=== PATIENT | female | born 1965 | race Caucasian/White ===

== ENCOUNTER 2023-07-01 10:22 | Emergency (ER) | payer OTHER ==
[2023-07-01 10:27] VITALS: RESP 18; TEMP 98; BMI 26.6
[2023-07-01] MEDS ORDERED: SODIUM CHLORIDE 1,000 ML IV ONE (10:55)
[2023-07-01 11:47] LABS: BASO % 0.6 % (0-2.0); EOS % 2.6 % (0-4.5); HEMATOCRIT 40.1 % (32.4-45.2); HEMOGLOBIN 13.2 GM/dL (10.7-15.3); LYMPH % 36.5 % (8-40); MCH 29.8 pg (25.7-33.7); MEAN CELL VOLUME 90.3 fl (80-96); MEAN PLT VOLUME 10.4 fl (7.5-11.1); MONO % 7.2 % (3.8-10.2); NEUT % 53.1 % (42.8-82.8); PLATELET COUNT 227 10^3/uL (134-434); RBC 4.43 M/mm3 (3.60-5.2); RDW 13.2 % (11.6-15.6); WHITE BLOOD COUNT 5.4 K/mm3 (4.0-10.0)
[2023-07-01 11:49] LABS: EPI CELLS >36 /uL (0-25.1); HYALINE CASTS 1 /uL (0-3.1); PH,URINE 5.5 (5.0-8.0); URINE APPEARANCE TURBID; URINE BACTERIA >9,000 /uL (0-1359); URINE BILIRUBIN NEGATIVE (NEGATIVE); URINE COLOR YELLOW; URINE GLUCOSE (UA) 3+ (NEGATIVE); URINE KETONE TRACE (NEGATIVE); URINE LEUK ESTERASE 2+ (NEGATIVE); URINE NITRITE NEGATIVE (NEGATIVE); URINE PROTEIN 1+ (NEGATIVE); URINE RBC 116 /uL (0-23.9); URINE UROBILINOGEN 0.2 mg/dL (0.2-1.0); URINE WBC 7104 /uL (0-25.8)
[2023-07-01 11:52] LABS: VENOUS BASE EXCESS -0.5 mmol/L (-2-2); VENOUS O2 SATURATION 58.6 % (70-80); VENOUS PCO2 48.6 mmHg (38-52); VENOUS PH 7.343 (7.310-7.410)
[2023-07-01 12:08] LABS: POTASSIUM 4.7 mmol/L (3.5-5.1); SODIUM 136 mmol/L (136-145)
[2023-07-01 12:10] LABS: CALCIUM 9.5 mg/dL (8.5-10.1)
[2023-07-01 12:11] LABS: ALBUMIN 3.4 g/dl (3.4-5.0); CO2 27 mmol/L (21-32)
[2023-07-01 12:13] LABS: CREATININE 0.9 mg/dL (0.55-1.3)
[2023-07-01 12:14] LABS: SGOT/AST 9 U/L (15-37); SGPT/ALT 21 U/L (13-61)
[2023-07-01 12:15] LABS: BILIRUBIN,TOTAL 0.3 mg/dL (0.2-1)
[2023-07-01 12:16] LABS: ALK PHOS 113 U/L (45-117)
[2023-07-01 12:28] LABS: ANION GAP 10 MMOL/L (8-16); CHLORIDE 99 mmol/L (98-107); GLUCOSE,RANDOM 419 mg/dL (74-106)
[2023-07-01] MEDS ORDERED: CEFTRIAXONE 1,000 MG in DEXTROSE 5%-WATER - 50 ML IVPB ONE (12:32)
[2023-07-01] MEDS ORDERED: CEFTRIAXONE 1 GM/50 ML BAG ONE (12:52)
[2023-07-01 14:36] VITALS: BP 120/68; PULSE 71
== END 2023-07-01 14:30 | disposition home or self-care (01) ==
LOC: JER 10:22
PROC: 3E03329 Introduction of Other Anti-infective into Peripheral Vein, Percutaneous Approach (ICD-10-PCS; principal; 2023-07-01)
PROC: 3E0337Z Introduction of Electrolytic and Water Balance Substance into Peripheral Vein, Percutaneous Approach (ICD-10-PCS; 2023-07-01)
DX: E11.65 Type 2 diabetes mellitus with hyperglycemia (principal); R35.89 Other polyuria; R63.1 Polydipsia; N39.0 Urinary tract infection, site not specified
CPT/HCPCS: 36415; 80053; 81003; 82010; 82803; 82962; 83735; 84484; 85025; 87086; 87186; 93005; 93010; 99284-25

== ENCOUNTER 2023-11-05 10:03 | Emergency (ER) | payer OTHER ==
[2023-11-05 10:18] VITALS: BP 117/78; PULSE 89; RESP 18; TEMP 98.2; BMI 27.7
[2023-11-05] MEDS ORDERED: LACTATED RINGERS SOLUTION 1000 ML INFUS.BAG IV ONE (10:50)
[2023-11-05 11:36] LABS: BASO % 1.2 % (0-2.0); EOS % 2.2 % (0-4.5); HEMATOCRIT 42.3 % (32.4-45.2); HEMOGLOBIN 14.2 GM/dL (10.7-15.3); LYMPH % 25.1 % (8-40); MCH 29.7 pg (25.7-33.7); MCHC 33.6 g/dl (32.0-36.0); MEAN CELL VOLUME 88.3 fl (80-96); MEAN PLT VOLUME 9.6 fl (7.5-11.1); MONO % 4.7 % (3.8-10.2); NEUT % 66.8 % (42.8-82.8); PH,URINE 6.5 (5.0-8.0); PLATELET COUNT 222 10^3/uL (134-434); RBC 4.79 M/mm3 (3.60-5.2); RDW 13.5 % (11.6-15.6); URINE APPEARANCE CLEAR; URINE BILIRUBIN NEGATIVE (NEGATIVE); URINE COLOR YELLOW; URINE GLUCOSE (UA) 3+ (NEGATIVE); URINE KETONE NEGATIVE (NEGATIVE); URINE LEUK ESTERASE NEGATIVE (NEGATIVE); URINE NITRITE NEGATIVE (NEGATIVE); URINE PROTEIN NEGATIVE (NEGATIVE); URINE UROBILINOGEN 0.2 mg/dL (0.2-1.0); WHITE BLOOD COUNT 6.9 K/mm3 (4.0-10.0)
[2023-11-05 11:41] LABS: VENOUS BASE EXCESS 0.9 mmol/L (-2-2); VENOUS O2 SATURATION 74.4 % (70-80); VENOUS PCO2 45.8 mmHg (38-52); VENOUS PH 7.381 (7.310-7.410)
[2023-11-05 11:47] LABS: INR 0.97 (0.83-1.09); PROTHROMBIN TIME (PATIENT) 11.2 SEC (9.7-13.0)
[2023-11-05 12:02] LABS: CHLORIDE 95 mmol/L (98-107); POTASSIUM 3.9 mmol/L (3.5-5.1); SODIUM 130 mmol/L (136-145)
[2023-11-05 12:04] LABS: ALBUMIN 3.7 g/dl (3.4-5.0); BLOOD UREA NITROGEN 9.8 mg/dL (7-18); CALCIUM 9.3 mg/dL (8.5-10.1)
[2023-11-05 12:05] LABS: ANION GAP 6 mmol/L (4-13); CO2 29 mmol/L (21-32)
[2023-11-05 12:06] LABS: CREATININE 0.9 mg/dL (0.55-1.3)
[2023-11-05 12:07] LABS: SGOT/AST 7 U/L (15-37); SGPT/ALT 24 U/L (13-61)
[2023-11-05 12:08] LABS: BILIRUBIN,TOTAL 0.4 mg/dL (0.2-1); TOT PROT 7.7 g/dl (6.4-8.2)
[2023-11-05 12:10] LABS: ALK PHOS 123 U/L (45-117)
[2023-11-05 12:14] LABS: GLUCOSE,RANDOM 467 mg/dL (74-106)
[2023-11-05] MEDS ORDERED: INSULIN REGULAR HUMAN 100 UNITS/ML *VIAL SQ ONE (12:26)
== END 2023-11-05 16:37 | disposition left against medical advice (07) ==
LOC: JER 10:03
PROC: 3E013VG Introduction of Insulin into Subcutaneous Tissue, Percutaneous Approach (ICD-10-PCS; principal; 2023-11-05)
DX: R73.9 Hyperglycemia, unspecified (principal); Z91.198 Patient's noncompliance with other medical treatment and regimen for other reason; Z20.822 Contact with and (suspected) exposure to COVID-19
CPT/HCPCS: 0241U-QW; 36415; 80053; 81003; 82010; 82803; 82962; 83735; 84484; 85025; 85610; 85730; 86850; 86900; 86901; 87086; 87186; 93005; 93010; 99284-25